=== PATIENT | male | born 1980 | race Caucasian/White ===

== ENCOUNTER → 2019-07-21 | Outpatient (REF) | payer BC ==
[2019-07-21 13:21] LABS: BASO # 0.1 10^3/uL (0.0-0.2); BASO % 1.3 % (0.0-1.0); EOS # 0.2 10^3/uL (0.0-0.50); EOS % 2.1 % (0.0-3.0); HEMOGLOBIN 15.8 g/dl (13.5-17.5); LYMPH # 1.9 10^3/uL (1.5-4.5); LYMPH % 25.3 % (24.0-44.0); MEAN CORPUSCULAR HEMOGLOBIN 30.7 pg (27.0-33.0); MEAN CORPUSCULAR HGB CONC 34.3 g/dl (32.0-36.5); MEAN CORPUSCULAR VOLUME 89.3 fl (80.0-96.0); MONO # 0.7 10^3/uL (0.0-0.8); MONO % 9.5 % (0.0-5.0); NEUTROPHILS # 4.7 10^3/uL (1.8-7.7); PLATELET COUNT, AUTOMATED 380 10^3/uL (150-450); RED BLOOD COUNT 5.15 10^6/uL (4.30-6.10); WHITE BLOOD COUNT 7.7 10^3/uL (4.0-10.0)
[2019-07-21 13:46] LABS: CREATININE FOR GFR 0.99 MG/DL (0.70-1.30); ERYTHROCYTE SEDIMENTATION RATE 6 mm/hr (0-15); GLOMERULAR FILTRATION RATE > 60.0 (>60); URIC ACID 7.9 MG/DL (3.5-7.2)
== END ==
LOC: M LABDRAW1 11:55
PROVIDERS: ATTEND Physician Assistant Medical
DX: M79.671 Pain in right foot (principal)

== ENCOUNTER 2019-08-26 09:05 | Emergency (ER) | payer BC ==
[~2019-08-26] VITALS: Ht 177.8 cm; Wt 122.7 kg
[2019-08-26] MEDS ORDERED: PRIL20TA2 PO (09:14)
[2019-08-26 10:46] LABS: BASO # 0.1 10^3/uL (0.0-0.2); BASO % 0.8 % (0.0-1.0); EOS # 0.2 10^3/uL (0.0-0.5); EOS % 1.6 % (0.0-3.0); HEMATOCRIT 45.9 % (42.0-52.0); HEMOGLOBIN 15.9 g/dl (13.5-17.5); LYMPH # 1.7 10^3/uL (1.5-5.0); MEAN CORPUSCULAR HEMOGLOBIN 30.7 pg (27.0-33.0); MEAN CORPUSCULAR HGB CONC 34.6 g/dl (32.0-36.5); MEAN CORPUSCULAR VOLUME 88.6 fl (80.0-96.0); MONO % 6.3 % (0.0-5.0); NEUTROPHILS # 12.2 10^3/uL (1.5-8.5); NEUTROPHILS % 79.8 % (36.0-66.0); PLATELET COUNT, AUTOMATED 363 10^3/uL (150-450); RED BLOOD COUNT 5.18 10^6/uL (4.30-6.10); WHITE BLOOD COUNT 15.3 10^3/uL (4.0-10.0)
[2019-08-26] MEDS ORDERED: ISOVUE-370 76% 100ML VIAL (Q9967) As Ordered ONE (10:49)
[2019-08-26 11:37] LABS: ALBUMIN 4.2 GM/DL (3.2-5.2); BILIRUBIN,DIRECT 0.1 MG/DL (0.0-0.2); BILIRUBIN,TOTAL 0.7 MG/DL (0.2-1.0); TOTAL PROTEIN 8.2 GM/DL (6.4-8.2)
--- NOTE | 2019-08-26 11:37 | REP ---
REASON: History of abdominal pain with clinical constipation and known umbilical hernia. The lung bases are clear. The liver, gallbladder, spleen, pancreas, adrenal glands, and kidneys are within normal limits. Note is made of two round low density structures in the left kidney, one in the superior pole and the other in the inferior pole each measuring approximately 1.8 cm and both having water density or near water density Hounsfield unit readings consistent with simple cysts. No septations or enhancing nodules are present. The abdominal aorta and paraaortic regions are within normal limits. There is diffuse fatty infiltration surrounding the mid descending colon amidst multiple diverticula. There is no evidence of free fluid or free air. There is an umbilical hernia through which mesentery and its associated vessels reside and seen in conjunction with mild parahernial fatty infiltration. CT PELVIS: The bowel loops and their mesenteries are within normal limits. There is no mass or adenopathy. There is no free fluid or free air. There is corpora amylacea. Bone window technique throughout the exam shows the osseous structures to be within normal limits. IMPRESSION: 1. There is descending colon diverticulitis. 2. Umbilical hernia as described above. The fatty infiltration suggests a mild parahernial inflammatory response. This should be correlated clinically with appropriate followup. 3. Left renal cysts. Electronically Signed by Shyam Hull DO 08/26/2019 11:39 A
[2019-08-26] MEDS ORDERED: NS 1,000 ML IV ONE (12:00)
[2019-08-26] MEDS ORDERED: CIPROFLOXACIN 500 MG TAB PO ONE (13:00)
[2019-08-26] MEDS ORDERED: metroNIDAZOLE (FLAGYL) 500 MG TAB PO ONE (13:00)
[2019-08-26 13:44] VITALS: BP 161/80
[2019-08-26] MEDS ORDERED: CIPR-249 PO (14:07)
[2019-08-26] MEDS ORDERED: FLAG500T PO (14:07)
== END 2019-08-26 14:16 | disposition home or self-care (01) ==
LOC: M ED 09:05
DX: K57.32 Diverticulitis of large intestine without perforation or abscess without bleeding (principal); K42.9 Umbilical hernia without obstruction or gangrene
CPT/HCPCS: 74177; 80047; 80076; 83605; 83690; 85025; 96360; 96361; 99284; Q9967

== ENCOUNTER → 2019-10-25 | Outpatient (REF) | payer BC ==
[~2019-10-25] MED LIST: CIPR-249 PO; FLAG500T PO; PRIL20TA2 PO
[2019-10-27 09:14] LABS: LDL DIRECT 116 mg/dL (0-99)
== END ==
LOC: M LAB REF 17:10
PROVIDERS: ATTEND Internal Medicine
DX: E78.00 Pure hypercholesterolemia, unspecified (principal)

== ENCOUNTER 2020-01-11 11:08 | Day surgery (SDC) | payer BC ==
[~2020-01-11] VITALS: Ht 177.8 cm; Wt 122.9 kg
[~2020-01-11 11:08] MED LIST changes: +NS 1,000 ML IV ONE
[2020-01-11] MEDS ORDERED: fentaNYL 100 MCG/2 ML INJECTION (J3010) As Ordered ONE (11:11)
[2020-01-11] MEDS ORDERED: propofoL 200 MG/20 ML VIAL As Ordered ONE (11:12)
[2020-01-11] MEDS ORDERED: LIDOCAINE 2% INJ 100 MG/5 ML SDV (FOR ANES.) As Ordered ONE (11:12)
[2020-01-11 13:00] VITALS: BP 171/103
--- NOTE | 2020-01-11 15:34 | ROOR ---
Patient Name: Cam Smith Procedure Date: 01/11/2020 12:24 PM Date of : 1980 Age: 39 Room: [facility] Gender: Male Note Status: Finalized Procedure: Upper Endoscopy + Biopsies Indications: Heartburn, Exclusion of Arcos's esophagus Providers: Hussain Sigala MD Referring MD: Roselia Montemayor DO Requesting Provider: Medicines: Monitored Anesthesia Care Complications: No immediate complications. Procedure: Pre-Anesthesia Assessment: - The heart rate, respiratory rate, oxygen saturations, blood pressure, adequacy of pulmonary ventilation, and response to care were monitored throughout the procedure. The Endoscope was introduced through the mouth, and advanced to the second part of duodenum. The upper GI endoscopy was accomplished without difficulty. The patient tolerated the procedure well. Findings: The Z-line was irregular and was found 40 cm from the incisors. Multiple biopsies were obtained with cold forceps for evaluation to rule out Arcos's Esophagus randomly at the gastroesophageal junction. A small hiatal hernia was present. No other significant abnormalities were identified in a careful examination of the stomach. The exam of the duodenum was otherwise normal. Impression: - Z-line irregular, 40 cm from the incisors. - Small hiatal hernia. - Multiple biopsies were obtained at the gastroesophageal junction. - The examination was otherwise normal. Recommendation: - Patient has a contact number available for emergencies. The signs and symptoms of potential delayed complications were discussed with the patient. Return to normal activities tomorrow. Written discharge instructions were provided to the patient. - Resume previous diet. - Discharge patient to home. - Follow an antireflux regimen. - Continue present medications. - Await pathology results. - Telephone GI clinic for pathology results in 1 week. - Return to referring physician. - The findings and recommendations were discussed with the patient's family. Hussain Sigala MD Hussain Sigala MD 01/11/2020 12:40:47 PM Electronically signed by Hussain Sigala MD Number of Addenda: 0 Note Initiated On: 01/11/2020 12:24 PM Estimated Blood Loss: Estimated blood loss: none.
== END 2020-01-11 13:30 | disposition home or self-care (01) ==
LOC: M OPP 11:08
PROVIDERS: ATTEND Internal Medicine Gastroenterology
DX: K22.8 Other specified diseases of esophagus (principal); K44.9 Diaphragmatic hernia without obstruction or gangrene; K21.9 Gastro-esophageal reflux disease without esophagitis; R12 Heartburn; F17.210 Nicotine dependence, cigarettes, uncomplicated
CPT/HCPCS: 43239; 88305; J3010

== ENCOUNTER → 2020-05-17 | Outpatient (REF) | payer BC ==
[~2020-05-17] MED LIST changes: -NS 1,000 ML IV ONE
== END ==
LOC: M LAB REF 16:25
PROVIDERS: ATTEND Physician Assistant
DX: Z11.59 Encounter for screening for other viral diseases (principal)

== ENCOUNTER → 2020-12-24 | Outpatient (REF) | payer BC | LOC: M LAB REF 16:17 | PROVIDERS: ATTEND Internal Medicine | DX: M10.9 Gout, unspecified (principal) ==

== ENCOUNTER → 2021-12-27 | Outpatient (REF) | payer BC | LOC: M LAB REF 17:01 | PROVIDERS: ATTEND Internal Medicine | DX: R10.32 Left lower quadrant pain (principal) ==

== ENCOUNTER → 2022-01-07 | Outpatient (CLI) | payer BC ==
[~2022-01-07] MED LIST changes: +GASTROGRAFIN SOLUTION 30ML (Q9963) As Ordered ONE; +ISOVUE-370 76% 100ML VIAL As Ordered ONE
== END ==
LOC: M RAD 09:07
PROVIDERS: ATTEND Internal Medicine
DX: R10.9 Unspecified abdominal pain (principal)
CPT/HCPCS: 74178; Q9963; Q9967

== ENCOUNTER → 2022-02-04 | Outpatient (REF) | payer BC ==
[~2022-02-04] MED LIST changes: -GASTROGRAFIN SOLUTION 30ML (Q9963) As Ordered ONE; -ISOVUE-370 76% 100ML VIAL As Ordered ONE
== END ==
LOC: M LAB REF 16:24
PROVIDERS: ATTEND Internal Medicine
DX: E78.5 Hyperlipidemia, unspecified (principal)

== ENCOUNTER → 2022-03-19 | Outpatient (REF) | payer BC | LOC: M LAB REF 16:27 | PROVIDERS: ATTEND Internal Medicine | DX: B35.1 Tinea unguium (principal) ==

== ENCOUNTER → 2022-04-23 | Outpatient (CLI) | payer BC ==
[~2022-04-23] MED LIST changes: +AMLO1TAB24 PO; +OMEP40CA5 PO; +VALS1TAB67 PO
== END ==
LOC: M LABSMTC 09:16
PROVIDERS: ATTEND Anesthesiology
DX: Z01.818 Encounter for other preprocedural examination (principal); Z11.52 Encounter for screening for COVID-19

== ENCOUNTER 2022-04-28 08:31 | Day surgery (SDC) | payer BC ==
[~2022-04-28] VITALS: Ht 177.8 cm; Wt 128.7 kg
[~2022-04-28 08:31] MED LIST changes: +LIDOCAINE 2% 100MG/5ML SDV (FOR ANES.) As Ordered ONE; +fentaNYL 100 MCG/2 ML INJECTION As Ordered ONE; +propofoL 500 MG/50 ML VIAL As Ordered ONE
[2022-04-28] MEDS ORDERED: NS 1,000 ML IV ONE (09:35)
[2022-04-28] MEDS ORDERED: propofoL 200 MG/20 ML VIAL As Ordered ONE (09:58)
[2022-04-28 10:37] VITALS: BP 131/69
== END 2022-04-28 10:40 | disposition home or self-care (01) ==
LOC: M OPP 08:31
PROVIDERS: ATTEND Internal Medicine Gastroenterology
DX: K57.32 Diverticulitis of large intestine without perforation or abscess without bleeding (principal); R12 Heartburn; D13.0 Benign neoplasm of esophagus; K64.0 First degree hemorrhoids; K57.30 Diverticulosis of large intestine without perforation or abscess without bleeding; I10 Essential (primary) hypertension; Z79.899 Other long term (current) drug therapy
CPT/HCPCS: 43239; 45378; 88305; J3010